=== PATIENT | female | born 1955 | race Two or more races ===

== ENCOUNTER 2019-05-10 23:58 | Emergency (ER) | payer OTHER ==
[~2019-05-10] VITALS: Ht 154.9 cm; Wt 93.0 kg
--- NOTE | 2019-05-11 00:30 | NUR ---
PT PRESENTED TO THE ER WITH A C/O NOSE BLEED SINCE 2300 TODAY. PT TAKES BP MEDICATION ONLY IN THE AM. PT AMBULATED TO ER #7 WITH A STEADY GAIT. NO DIZZINESS NOTED. PT IS [place] SPEAKING ONLY. PT'S DAUGHTER IS AT THE BEDSIDE TRANSLATING FOR PT. NOSE CLIP MADE AND APPLIED TO THE PT'S NOSE. NO ACTIVE BLEEDING NOTED. PT HAS TISSUES AND WAS TOLD TO KEEP HER HEAD FORWARD, NOT BACK AND TO SPIT OUT ANY BLOOD THAT SHE HAS IN HER MOUTH.
--- NOTE | 2019-05-11 00:34 | NUR ---
PT WAS PLACED ON THE MONITOR AND CONTINUOUS PULSE OX.
[2019-05-11] MEDS ORDERED: PHENYLEPHRINE 1% NASAL SPRAY 15 ML BOTTLE NS STA (00:44)
[2019-05-11] MEDS ORDERED: PHENYLEPHRINE 0.5% NASAL SPRAY 15 ML BOTTLE NS ONE (00:54)
--- NOTE | 2019-05-11 01:00 | NUR ---
NASAL SPRAY IS AT THE BEDSIDE FOR MD.
[2019-05-11 02:15] VITALS: BP 138/91
--- NOTE | 2019-05-11 02:16 | NUR ---
Patient discharged to home in stable condition. Written and verbal after care instructions given. Patient verbalizes understanding of instruction. PT'S DAUGHTER IS DRIVING PT HOME. VSS. NAD NOTED. PT AMBULATED OUT WITH A STEADY GAIT.
== END 2019-05-11 02:17 | disposition home or self-care (01) ==
LOC: ER 05-11 00:02
DX: R04.0 Epistaxis (principal); I10 Essential (primary) hypertension; E11.9 Type 2 diabetes mellitus without complications; E78.5 Hyperlipidemia, unspecified; Z85.038 Personal history of other malignant neoplasm of large intestine; Z93.3 Colostomy status; Z98.890 Other specified postprocedural states